=== PATIENT | male | born 1950 | race Caucasian/White ===

== ENCOUNTER → 2017-08-16 | Outpatient (CLI) | payer MEDICARE ==
[2015-01-22 08:34] VITALS: BP 137/59
[~2017-08-16] MED LIST: ASPI-482 PO; CARV12.5 PO; CHOL20002 PO; EYE VITAMINS; LIPITOR80 MG PO; LISI-334 PO; MULT-658 PO; OMEG500C PO; UBID400C3 PO
--- NOTE | 2017-08-16 11:49 | KCIC ---
3 views left knee radiograph 08/16/2017 Clinical indication: Chronic pain and swelling. COMPARISON: None. FINDINGS: There is diffuse bony demineralization. There is severe lateral compartment osteoarthritis with [id number] contact osteophyte formation and subchondral sclerosis. Moderate osteophytosis of the medial joint compartment with joint space narrowing and osteophytic spurring. Moderate patellofemoral arthrosis. Chondrocalcinosis of the medial joint compartment is noted. No significant joint effusion. There are multiple sclerotically marginated ossific densities posterior to the knee joint. No acute fracture. IMPRESSION: 1. Tricompartment osteoarthritis, greatest to severe degree, laterally with [id number] contact. 2. A few ossific densities posterior to the left knee joint, may represent intra-articular bodies. 3. Diffuse osteopenia. Electronically signed by: Blane Barboza MD (08/16/2017 11:46 AM) [id number]
== END | disposition home or self-care (01) ==
LOC: KCIC 10:40
PROVIDERS: ATTEND Family Medicine
DX: M17.0 Bilateral primary osteoarthritis of knee (principal); G89.29 Other chronic pain; M85.80 Other specified disorders of bone density and structure, unspecified site
CPT/HCPCS: 73562

== ENCOUNTER → 2020-05-10 | Outpatient (CLI) | payer MEDICARE ==
[2015-01-22 08:34] VITALS: BP 137/59
--- NOTE | 2020-05-10 16:16 | KCIC ---
EXAM: Pelvis and left hip, 3 views. HISTORY: Pain. COMPARISON: None. FINDINGS: A frontal view the pelvis and 2 views of the left hip are obtained. There is no fracture, dislocation or subluxation. There is suspected bone demineralization. There is degenerative change at the lower lumbar levels. IMPRESSION: No acute osseous finding. Suspected bone demineralization. Electronically signed by: Karen Wiggins MD (05/10/2020 4:14 PM) [id number]
== END | disposition home or self-care (01) ==
LOC: KCIC 15:49
PROVIDERS: ATTEND Family Medicine
DX: M25.552 Pain in left hip (principal); M47.896 Other spondylosis, lumbar region
CPT/HCPCS: 73502